=== PATIENT | male | born 1990 | race Caucasian/White ===

== ENCOUNTER 2023-05-22 21:01 | Emergency (ER) | payer MEDICAID ==
[~2023-05-22] VITALS: Ht 170.2 cm; Wt 91.0 kg
[2023-05-22 21:20] VITALS: RESP 16; TEMP 98.5; O2SAT 98
[2023-05-23 02:13] VITALS: BP 122/85; PULSE 97
== END 2023-05-23 02:14 | disposition home or self-care (01) ==
LOC: ER 22:28
DX: F15.10 Other stimulant abuse, uncomplicated (principal)
CPT/HCPCS: 99283

== ENCOUNTER 2023-05-23 02:48 | Emergency (ER) | payer MEDICAID ==
[~2023-05-23] VITALS: Ht 170.2 cm; Wt 109.0 kg
[2023-05-23 03:24] VITALS: BP 124/87; PULSE 58; RESP 18; TEMP 98.5; O2SAT 97
== END 2023-05-23 06:45 | disposition home or self-care (01) ==
LOC: ER 02:48
DX: M79.606 Pain in leg, unspecified (principal)
CPT/HCPCS: 99281